=== PATIENT | female | born 1950 | race Caucasian/White ===

== ENCOUNTER 2020-04-07 12:36 | Inpatient (IN) | payer MEDICARE, OTHER ==
[~2020-04-07] VITALS: Ht 165.1 cm; Wt 90.7 kg
--- NOTE | 2020-04-07 12:44 | NUR ---
PATIENT IS AWAKE AND ALERT. SHE IS NEAR THE NURSES STATION., SHE IS COOPERATIVE. SHE IS IN HOSPITAL CLOTHES WITH ALL PERSONAL BELONGINGS AWAY FROM HER ROOM.
--- NOTE | 2020-04-07 13:00 | NUR ---
PATIENT IS SITTING UP EATING LUNCH
[2020-04-07] MEDS ORDERED: ATOR40TA PO (13:40)
[2020-04-07] MEDS ORDERED: FURO40TA5 PO (13:42)
[2020-04-07] MEDS ORDERED: OMEG1CAP55 PO (13:44)
[2020-04-07] MEDS ORDERED: LEVO100T PO (13:44)
[2020-04-07] MEDS ORDERED: OLME40TA12 PO (13:44)
[2020-04-07] MEDS ORDERED: SULF500T8 PO (13:45)
[2020-04-07] MEDS ORDERED: NIFE-34 PO (13:45)
[2020-04-07] MEDS ORDERED: ARIP15TA3 PO (13:46)
[2020-04-07] MEDS ORDERED: ALEN70TA78 PO (13:46)
--- NOTE | 2020-04-07 14:02 | NUR ---
REPORT GIVEN TO OLIVIA IN U.
[2020-04-07 14:15] VITALS: BP 110/59
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
[2020-04-07] MEDS ORDERED: ACETAMINOPHEN 325 MG TABLET PO PRN (14:30)
[2020-04-07] MEDS ORDERED: MAGNESIUM HYDROXIDE 30 ML LIQUID UDC PO PRN (14:30)
[2020-04-07] MEDS ORDERED: MAG HYDROX/AL HYDROX/SIMETH 30 ML LIQUID UDC PO PRN (14:30)
--- NOTE | 2020-04-07 15:25 | NUR ---
Social Work Initial Discharge Plan: Patient currently lives with her Jeffrey ([phone]) at [address] [place] [id number]; ([phone]). Per patient's , he would want patient back home. Patient stated that she would want to return back home upon discharge. paste worker will work with the MD and treatment team to plan proper discharge for patient.
--- NOTE | 2020-04-07 15:25 | NUR ---
Social Work Family Contact: wharf worker contacted patient's Jeffrey ([phone]) to gather collateral. Patient's is aware and agreeable with discharge plan.
--- NOTE | 2020-04-07 15:27 | NUR ---
Social Work Firearms Report: Mill Controller completed and submitted a [employer] firearms report for 5150 grave disability certification. A copy of report has been placed in patient chart.
[2020-04-07] MEDS: ATORVASTATIN 40 MG TABLET PO SCH (20:21)
[2020-04-07 20:32] VITALS: BP 102/56
--- NOTE | 2020-04-08 06:53 | NUR ---
Patient slept 7.45 hours last night. Medication compliant. Refused PRN. This patient was very introverted and did not want to talk last night. Only short answers. Oriented x2. No issues noted at this time.
[2020-04-08 07:30] VITALS: BP 110/57
--- NOTE | 2020-04-08 07:30 | NUR ---
GPS: received patient AOx1-2, patient guarded, labile, patient responding to internal stimuli, no distress, had breakfast, mumbling at this time
[2020-04-08 08:02] LABS: BASOPHILS % (AUTO) 0.2 % (0.0-2.0); EOSINOPHILS # (AUTO) 0.1 K/uL (0.0-0.7); EOSINOPHILS % (AUTO) 1.4 % (0.0-7.0); HEMATOCRIT 37.9 % (31.2-41.9); HEMOGLOBIN 12.6 g/dL (10.9-14.3); LYMPHOCYTES # (AUTO) 1.5 K/uL (20.0-40.0); MEAN CORPUSCULAR HEMOGLOBIN 31.5 uug (24.7-32.8); MEAN CORPUSCULAR HGB CONC 33 g/dL (32.3-35.6); MEAN CORPUSCULAR VOLUME 94.7 fL (75.5-95.3); MONOCYTES # (AUTO) 0.6 K/uL (2.0-10.0); MONOCYTES % (AUTO) 8.6 % (0.0-11.0); NEUTROPHILS # (AUTO) 4.2 K/uL (1.8-8.9); NEUTROPHILS % (AUTO) 65.8 % (38.5-71.5); PLATELET COUNT (AUTO) 138 K/uL (179-408); RED BLOOD CELL COUNT(AUTO) 4.01 MIL/uL (3.63-4.92); WHITE BLOOD COUNT (AUTO) 6.4 K/uL (3.8-11.8)
[2020-04-08] MEDS: LEVOTHYROXINE SODIUM 100 MCG TABLET PO SCH (08:16)
[2020-04-08] MEDS: FUROSEMIDE 20 MG TABLET PO SCH (08:16)
[2020-04-08] MEDS: NIFEdipine XL 60 MG TABSR PO SCH ×2 (08:17→08:30)
[2020-04-08 08:21] LABS: BILIRUBIN,TOTAL 0.6 mg/dL (0.2-1.0); POTASSIUM 3.7 mmol/L (3.5-5.1); TOTAL PROTEIN, SERUM 6.2 g/dL (6.4-8.2)
[2020-04-08 08:23] LABS: THYROID STIMULATING HORMONE 2.427 mIU/mL (0.358-3.740)
[2020-04-08 09:00] LABS: MAGNESIUM 2.1 mg/dL (1.8-2.4); PHOSPHOROUS 2.9 mg/dL (2.5-4.9)
[2020-04-08] MEDS ORDERED: SULFASALAZINE 500 MG TABLET PO SCH (09:00)
[2020-04-08 16:08] VITALS: BP 116/47
--- NOTE | 2020-04-08 18:09 | NUR ---
patient been quiet, isolative, patient been delusional, patient denies any symptoms, minimizes symptoms, patient guarded and mentally preoccupied , patient been delusional verbalizes that she got a call from the doctor that she is being discharge where in there is no discharge orders made by the psychiatrist, patient no distress at this time, will continue monitor
[2020-04-08] MEDS: ATORVASTATIN 40 MG TABLET PO SCH (21:00)
[2020-04-09 07:30] VITALS: BP 123/70
[2020-04-09] MEDS: FUROSEMIDE 20 MG TABLET PO SCH (09:48)
[2020-04-09] MEDS: LEVOTHYROXINE SODIUM 100 MCG TABLET PO SCH (09:49)
[2020-04-09] MEDS: NIFEdipine XL 60 MG TABSR PO SCH (09:49)
[2020-04-09] MEDS: ARIPIPRAZOLE 10 MG TABLET PO SCH ×2 (12:19→22:26)
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
[2020-04-09 15:16] VITALS: BP 107/59
[2020-04-09] MEDS: ATORVASTATIN 40 MG TABLET PO SCH (22:26)
[2020-04-10 01:36] VITALS: BP 114/60
[2020-04-10 07:30] VITALS: BP 120/55
[2020-04-10] MEDS: FUROSEMIDE 20 MG TABLET PO SCH (08:30)
[2020-04-10] MEDS: ARIPIPRAZOLE 10 MG TABLET PO SCH ×2 (08:30→20:17)
[2020-04-10] MEDS: LEVOTHYROXINE SODIUM 100 MCG TABLET PO SCH (08:31)
[2020-04-10] MEDS: NIFEdipine XL 60 MG TABSR PO SCH (08:31)
--- NOTE | 2020-04-10 11:35 | NUR ---
Gps/Meat Slicer- Per patient she is leaving today, requesting to have all of her belongings , she is going to be discharge to her home today, informed patient that her Doctor/Psychiatrist did not released her yet , claimed she talked to Dr Zhao and he gave her the ok, reassured patient will check first with her Psychiatrist .
--- NOTE | 2020-04-10 15:31 | NUR ---
Gps/B And B Gang Worker- Patient kept coming to the Nurses station holding copy of her belonging list (in the sate)., requesting released of her valuables , informed patient and kept redirecting patient , there is no order to discharge her today yet Patient , anxious, flat , worried look on her face.
[2020-04-10 16:00] VITALS: BP 130/72
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
[2020-04-10 20:00] VITALS: BP 114/60
[2020-04-10] MEDS: ATORVASTATIN 40 MG TABLET PO SCH (20:17)
--- NOTE | 2020-04-11 06:40 | NUR ---
Patient was up most of the night with blankets over her head and talking to self. Very preoccupied with the voices in her head. Total hours of sleep around 5 . This patient has delusions and claims " My does not love me and wants to kill me because I am too pretty". Catering Cook tried to state facts and have realistic conversation with patient but reinforcement is needed. Patient was offered a sleeping pill earlier in the shift but refused it. Continuing to provide a safe environment for the patient and encourage positive interactions with staff and peers.
[2020-04-11 07:30] VITALS: BP 131/65
[2020-04-11] MEDS: FUROSEMIDE 20 MG TABLET PO SCH (08:00)
[2020-04-11] MEDS: ARIPIPRAZOLE 10 MG TABLET PO SCH ×2 (08:00→21:32)
[2020-04-11] MEDS: LEVOTHYROXINE SODIUM 100 MCG TABLET PO SCH (08:01)
[2020-04-11] MEDS: NIFEdipine XL 60 MG TABSR PO SCH (08:02)
[2020-04-11 16:00] VITALS: BP 134/69
[2020-04-11] MEDS: ATORVASTATIN 40 MG TABLET PO SCH (21:31)
[2020-04-11 21:32] VITALS: BP 159/73
[2020-04-11] MEDS: LORAZEPAM 0.5 MG TABLET PO PRN (21:32)
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
--- NOTE | 2020-04-12 06:43 | NUR ---
SLEPT FOR 5:45 HOURS.HAD A SHOWER THIS MORNING.
[2020-04-12 07:30] VITALS: BP 128/76
[2020-04-12] MEDS: NIFEdipine XL 60 MG TABSR PO SCH (08:57)
[2020-04-12] MEDS: FUROSEMIDE 20 MG TABLET PO SCH (08:57)
[2020-04-12] MEDS: ARIPIPRAZOLE 10 MG TABLET PO SCH ×2 (08:57→20:21)
[2020-04-12] MEDS: LEVOTHYROXINE SODIUM 100 MCG TABLET PO SCH (08:58)
[2020-04-12 16:00] VITALS: BP 127/63
[2020-04-12 20:00] VITALS: BP 134/65
[2020-04-12] MEDS: ATORVASTATIN 40 MG TABLET PO SCH (20:22)
[2020-04-12] MEDS: LORAZEPAM 0.5 MG TABLET PO PRN (20:22)
[2020-04-13 07:30] VITALS: BP 115/60
[2020-04-13] MEDS: ARIPIPRAZOLE 10 MG TABLET PO SCH ×2 (08:21→21:06)
[2020-04-13] MEDS: NIFEdipine XL 60 MG TABSR PO SCH (08:21)
[2020-04-13] MEDS: FUROSEMIDE 20 MG TABLET PO SCH (08:21)
[2020-04-13] MEDS: LEVOTHYROXINE SODIUM 100 MCG TABLET PO SCH (08:22)
--- NOTE | 2020-04-13 14:31 | NUR ---
Social Work Therapy: feed elevator worker met with patient and discussed treatment plan/discharge plan. This internal communications writer expressed if patient would want to return back home or SNF. Patient stated that she wants to go back home and that she is able to independently address her ADLs.
[2020-04-13 16:00] VITALS: BP 113/40
[2020-04-13 20:44] VITALS: BP 125/63
[2020-04-13] MEDS: ATORVASTATIN 40 MG TABLET PO SCH (21:06)
[2020-04-14 07:30] VITALS: BP 120/62
[2020-04-14] MEDS: ARIPIPRAZOLE 10 MG TABLET PO SCH ×2 (08:35→20:26)
[2020-04-14] MEDS: LEVOTHYROXINE SODIUM 100 MCG TABLET PO SCH (08:35)
[2020-04-14] MEDS: NIFEdipine XL 60 MG TABSR PO SCH (08:35)
[2020-04-14] MEDS: FUROSEMIDE 20 MG TABLET PO SCH (08:35)
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
--- NOTE | 2020-04-14 11:02 | NUR ---
Social Work Coordination of Care: woolen mill utility worker spoke with Lori freight rate clerk ([phone]) (F:[phone]) and scheduled an apt with her primary doctor Dr. Mandel for April 21 at 10:30AM [address] [place] [address]. Upon discharge, clinicals will be needed to sent to the clinic.
[2020-04-14 15:23] VITALS: BP 113/58
[2020-04-14 20:03] VITALS: BP 106/55
[2020-04-14] MEDS: ATORVASTATIN 40 MG TABLET PO SCH (20:26)
--- NOTE | 2020-04-15 00:21 | NUR ---
resting in bed. compliant with meds. no delusional thoughts noted. VSS. quiet and isolative. will monitor patient's behavior. no complaints presented during shift.
--- NOTE | 2020-04-15 06:25 | NUR ---
End of the shift notes: No apparent distress noted. Quiet night. Slept well throughout the night. No complaints presented during the night. VSS. All needs met. Will monitor patient.
[2020-04-15 07:30] VITALS: BP_SYST 109; BP_SYST 137; BP_DIAS 57; BP_DIAS 60
[2020-04-15] MEDS: ARIPIPRAZOLE 10 MG TABLET PO SCH ×2 (08:23→20:13)
[2020-04-15] MEDS: FUROSEMIDE 20 MG TABLET PO SCH (08:23)
[2020-04-15] MEDS: NIFEdipine XL 60 MG TABSR PO SCH (08:23)
[2020-04-15] MEDS: LEVOTHYROXINE SODIUM 100 MCG TABLET PO SCH (08:23)
--- NOTE | 2020-04-15 14:33 | NUR ---
patient remains isolative no interaction with other peers, compliant with all po medication. denies any SI/HI.
[2020-04-15 16:00] VITALS: BP 104/61
[2020-04-15 16:07] VITALS: BP 104/61
[2020-04-15 19:58] VITALS: BP 110/53
[2020-04-15] MEDS: ATORVASTATIN 40 MG TABLET PO SCH (20:14)
--- NOTE | 2020-04-15 21:12 | NUR ---
awake alert and oriented x3-4 No acute distress noted. VSS attended to needs. Tolerated po meds well without difficulty. Patient isolative. Patient remains in her room. No complaints presented during shift.
--- NOTE | 2020-04-16 06:27 | NUR ---
End of shift report: sleeping at short intervals.No acute distress noted. Kept comfortable. OOB to the BR. Voidng well No BM noted this shift. No complaints noted. Attended to needs and met. VSS.
[2020-04-16 07:30] VITALS: BP 104/53
[2020-04-16] MEDS: ARIPIPRAZOLE 10 MG TABLET PO SCH ×2 (08:29→21:00)
[2020-04-16] MEDS: LEVOTHYROXINE SODIUM 100 MCG TABLET PO SCH (08:29)
[2020-04-16] MEDS: FUROSEMIDE 20 MG TABLET PO SCH (09:00)
[2020-04-16] MEDS: NIFEdipine XL 60 MG TABSR PO SCH (09:00)
--- NOTE | 2020-04-16 15:52 | NUR ---
Social Work Coordination of Care: animal nursery worker spoke with Lori backmusic composition teacher ([phone]) (F:[phone]) and faxed clinicals.
[2020-04-16 16:00] VITALS: BP 115/61
[2020-04-16 20:00] VITALS: BP 125/64
[2020-04-16] MEDS: ATORVASTATIN 40 MG TABLET PO SCH (21:00)
--- NOTE | 2020-04-17 08:04 | NUR ---
Social Work Discharge Note: Patient will be discharged back home [address], [place] [address]; ([phone]). Patients Jeffrey ([phone]) will nut picker patient at 1PM. Patients Jeffrey ([phone]) is aware and agreeable with discharge plan. Patient is alert and oriented x2-3. Patient is aware and agreeable with discharge plan. Upon discharge, patient appear to be calm, cooperative and happy to be going home. Patient denies suicidal and homicidal ideation. Patient will follow-up with (primary doctor) Dr. Mandel at [address] [place] [address]; ([phone]) on April 21 at 10:30AM. Patient will follow-up with (psychiatrist) Dr. Claros at [address] [address]; ([phone]) on May 06 at 2:30PM. Patient presents with euthymic mood and congruent affect.
[2020-04-17 08:30] VITALS: BP 120/63
[2020-04-17] MEDS: ARIPIPRAZOLE 10 MG TABLET PO SCH (09:01)
[2020-04-17] MEDS: LEVOTHYROXINE SODIUM 100 MCG TABLET PO SCH (09:01)
[2020-04-17 09:02] VITALS: BP 120/63
[2020-04-17] MEDS: NIFEdipine XL 60 MG TABSR PO SCH (09:02)
[2020-04-17] MEDS: FUROSEMIDE 20 MG TABLET PO SCH (09:02)
--- NOTE | 2020-04-17 13:40 | NUR ---
Patient is being discharged home. Pt's Jeffrey Bailey is picking her up. Pt calm and cooperative, A/O x 3. Pt refused to sign discharge teaching paperwork, saying that she does not agree with diagnosis. Pt's medications were called in to Patient's pharmacy, [facility] ([phone]). Pt is agreeable with discharge planning.
== END 2020-04-17 13:00 | disposition home or self-care (01) | DRG 885 ==
LOC: ER 12:36 → GPS 13:57
PROVIDERS: ADMIT Psychiatry & Neurology Psychiatry; ATTEND Internal Medicine
DX: F20.0 Paranoid schizophrenia (principal); R45.851 Suicidal ideations; E03.9 Hypothyroidism, unspecified; E78.5 Hyperlipidemia, unspecified; M06.9 Rheumatoid arthritis, unspecified; F29 Unspecified psychosis not due to a substance or known physiological condition; I10 Essential (primary) hypertension; E66.9 Obesity, unspecified; F31.9 Bipolar disorder, unspecified; R73.03 Prediabetes; Z68.33 Body mass index [BMI] 33.0-33.9, adult; Z79.890 Hormone replacement therapy
CPT/HCPCS: 36415; 71045; 83735; 84100; 84443; 85025; 93005; A4663